=== PATIENT | female | born 1975 | race Caucasian/White ===

== ENCOUNTER 2020-08-15 21:54 | Observation (INO) ==
[2020-08-15] MEDS ORDERED: 0.9 % Sodium Chloride 1,000 ML IVC ONE ×2 (23:28→23:51)
[2020-08-15 23:35] LABS: VBG HCO3 23 mEq/L (21-27); VBG PCO2 35 mmHg (41-51); VBG PH 7.42 pH Units (7.32-7.42); VBG PO2 83 mmHg (25-50)
[2020-08-16 00:03] LABS: Acetaminophen < 10 mcg/mL (10-20); Alanine Aminotransferase 64 Units/L (7-52); Albumin/Globulin Ratio 1.4 (1.1-2.2); Alkaline Phosphatase 45 Units/L (34-104); Aspartate Amino Transferase 63 Units/L (13-39); BUN/Creatinine Ratio 28 (6-26); Bilirubin,Direct 0.2 mg/dL (0.0-0.2); Bilirubin,Indirect 0.6 mg/dL (0.0-1.0); Bilirubin,Total 0.8 mg/dL (0.3-1.0); Blood Urea Nitrogen 26 mg/dL (6-20); Calcium 9.4 mg/dL (8.6-10.3); Carbon Dioxide 19 mEq/L (23-29); Chloride 100 mEq/L (98-107); Ethanol < 10 mg/dL (Less than 10); Globulin 2.8 g/dL (2.4-3.5); Glucose 151 mg/dL (70-105); Lipase 13 Units/L (11-82); Magnesium 2.1 mg/dL (1.6-2.6); Osmolality,Calculated 290 (280-300); Phosphorous 3.1 mg/dL (2.7-4.5); Potassium 4.2 mEq/L (3.5-5.1); Salicylate < 2.5 mg/dL (15.0-30.0); Sodium 136 mEq/L (136-145); Total Protein 6.8 g/dL (6.4-8.9); eGFR For African Americans > 60 (> 60); eGFR For Non-African Americans > 60 (> 60)
[2020-08-16 00:07] LABS: Thyroid Stimulating Hormone 1.188 mcIU/mL (0.340-5.600)
[2020-08-16 00:19] LABS: Amphetamine Screen,Urine Negative ng/mL (Cutoff=1000); Barbiturate Screen,Urine Negative ng/mL (Cutoff=200); Benzodiazepines Screen,Urine Negative ng/mL (Cutoff=200); Bilirubin,Urine Negative (Negative); Blood,Urine Negative (Negative); Cannabinoid Screen,Urine Negative ng/mL (Cutoff = 50); Clarity,Urine Clear (Clear); Cocaine Screen,Urine Negative ng/mL (Cutoff= 300); Color,Urine Yellow (Yellow); Glucose,Urine (UA) Normal (Normal); Ketones,Urine 10 mg/dL (Negative); Leukocyte Esterase,Urine Moderate (Negative); Mucus,Urine Moderate per lpf (None-Few); Nitrite,Urine Negative (Negative); Opiate Screen,Urine Positive ng/mL (Cutoff=300); PH,Urine 5.5 pH Units (5.0-8.0); Phencyclidine Screen,Urine Negative ng/mL (Cutoff=25); Protein,Urine Trace mg/dL (Neg-Trace); RBC,Urine 0-3 per hpf (0-3); Specific Gravity,Urine > 1.030 (1.010-1.025); Squamous Epithelial Cell,Urine Few per hpf (None-Few); Urobilinogen,Urine Normal (Normal)
[2020-08-16 00:25] LABS: Basophils % 0.1 %; Eosinophils % 0.1 %; Hematocrit 52.7 % (35.3-44.9); Hemoglobin 17.1 g/dL (11.5-15.4); Immature Granulocytes % 0.5 % (0-4); Lymphocytes # 2.2 K/mcL (0.6-4.6); Lymphocytes % 21.1 %; Mean Corpuscular HGB Conc 32.4 g/dL (31.6-35.5); Mean Corpuscular Hemoglobin 30.4 pg (28.0-33.3); Mean Corpuscular Volume 93.8 fL (83.0-100.0); Mean Platelet Volume 9.5 fL (9.4-12.4); Monocytes # 0.8 K/mcL (0.0-1.3); Monocytes % 7.6 %; Neutrophils # 7.3 K/mcL (1.6-8.9); Platelet Count 260 K/mcL (140-400); Red Blood Count 5.62 M/mcL (3.82-4.97); Red Cell Distribution Width 14.4 % (11.5-14.5); Segmented Neutrophils % 70.6 %; White Blood Count 10.3 K/mcL (4.3-11.1)
[2020-08-16] MEDS ORDERED: 0.9 % Sodium Chloride 1,000 ML IVC SCH (00:30)
[2020-08-16] MEDS ORDERED: Acetaminophen 325 MG TABLET PO PRN (02:54)
[2020-08-16] MEDS ORDERED: Naloxone 0.4 MG/ML INJ IVP PRN (02:54)
[2020-08-16] MEDS: *HR* LORazepam 2 MG/ML VIAL IVP PRN ×3 (04:53→15:08)
[2020-08-16] MEDS: Ondansetron 4 MG/2 ML VIAL IVP PRN ×3 (04:54→21:59)
[2020-08-16] MEDS: 0.9 % Sodium Chloride 1,000 ML IVC SCH ×2 (05:13→12:04)
[2020-08-16 05:18] LABS: Alanine Aminotransferase 52 Units/L (7-52); Albumin 3.7 g/dL (3.5-5.7); Albumin/Globulin Ratio 1.5 (1.1-2.2); Alkaline Phosphatase 38 Units/L (34-104); Aspartate Amino Transferase 45 Units/L (13-39); BUN/Creatinine Ratio 28 (6-26); Bilirubin,Total 0.9 mg/dL (0.3-1.0); Blood Urea Nitrogen 24 mg/dL (6-20); Calcium 8.5 mg/dL (8.6-10.3); Carbon Dioxide 21 mEq/L (23-29); Chloride 106 mEq/L (98-107); Globulin 2.4 g/dL (2.4-3.5); Glucose 120 mg/dL (70-105); Osmolality,Calculated 291 (280-300); Potassium 3.9 mEq/L (3.5-5.1); Sodium 138 mEq/L (136-145); Total Protein 6.1 g/dL (6.4-8.9); eGFR For African Americans > 60 (> 60); eGFR For Non-African Americans > 60 (> 60)
[2020-08-16 09:05] LABS: Estimated Average Glucose 111 mg/dl; Hemoglobin A1C 5.5 %
[2020-08-16 09:34] LABS: Creatine Kinase 14 Units/L (30-223)
[2020-08-16] MEDS ORDERED: Gadolinium Contrast Agent (WT Based) IV PRN (11:02)
[2020-08-16] MEDS ORDERED: *HR* LORazepam 2 MG/ML VIAL IVP PRN (15:25)
[2020-08-16] MEDS ORDERED: *HR* LORazepam 2 MG/ML VIAL IVP SCH (15:30)
[2020-08-16] MEDS ORDERED: ADALIMUMAB 40 MG/0.4 ML SQ SCH (15:30)
[2020-08-16 20:45] LABS: Folate > 22.3 ng/mL (3.0-16.0); Vitamin B12 562 pg/mL (250-1100)
[2020-08-16] MEDS: *HR* HYDROcodone/Acet 5/325 mg TABLET PO PRN (21:59)
[2020-08-16] MEDS: *HR* LORazepam 1 MG TABLET PO SCH (21:59)
[2020-08-16] MEDS ORDERED: traZODone 50 MG TABLET PO SCH (22:30)
[2020-08-17 01:14] LABS: Hematocrit 42.4 % (35.3-44.9); Hemoglobin 13.9 g/dL (11.5-15.4); Mean Corpuscular HGB Conc 32.8 g/dL (31.6-35.5); Mean Corpuscular Hemoglobin 30.6 pg (28.0-33.3); Mean Corpuscular Volume 93.4 fL (83.0-100.0); Mean Platelet Volume 9.2 fL (9.4-12.4); Platelet Count 203 K/mcL (140-400); Red Blood Count 4.54 M/mcL (3.82-4.97); Red Cell Distribution Width 14.7 % (11.5-14.5); White Blood Count 6.9 K/mcL (4.3-11.1)
[2020-08-17 01:32] LABS: BUN/Creatinine Ratio 27 (6-26); Blood Urea Nitrogen 21 mg/dL (6-20); Calcium 7.7 mg/dL (8.6-10.3); Carbon Dioxide 22 mEq/L (23-29); Chloride 110 mEq/L (98-107); Glucose 106 mg/dL (70-105); Osmolality,Calculated 293 (280-300); Potassium 3.7 mEq/L (3.5-5.1); Sodium 140 mEq/L (136-145); eGFR For African Americans > 60 (> 60); eGFR For Non-African Americans > 60 (> 60)
[2020-08-17] MEDS: *HR* LORazepam 1 MG TABLET PO SCH (07:48)
[2020-08-17] MEDS: *HR* HYDROcodone/Acet 5/325 mg TABLET PO PRN (07:53)
[2020-08-17] MEDS ORDERED: valACYclovir 500 MG TABLET PO SCH (09:00)
[2020-08-17] MEDS ORDERED: Baclofen 10 MG TABLET PO SCH (09:00)
[2020-08-17] MEDS ORDERED: (Vortioxetine Hydrobromide [Trintellix] 20 MG Tablet) PO SCH (09:00)
[2020-08-17] MEDS ORDERED: Famotidine 20 MG TABLET PO SCH (09:00)
[2020-08-17] MEDS ORDERED: amLODIPine 5 MG TABLET PO SCH (09:00)
[2020-08-17] MEDS ORDERED: Propranolol LA (24 HR) 60 MG CAP.SA.24H PO SCH (09:00)
[2020-08-17] MEDS ORDERED: NORETHINDRONE E ESTRADIOL IRON PO SCH (09:00)
[2020-08-17] MEDS ORDERED: (Leflunomide [Arava] 20 MG Tablet) PO SCH (09:00)
[2020-08-17 11:12] VITALS: BP 150/87
== END 2020-08-17 16:06 | disposition home or self-care (01) ==
LOC: 2NENU 21:54 → EMEROOARM 21:54 → SUATTDRO 08-16 02:16 → 2NENU 08-16 03:53
PROVIDERS: ADMIT Family Medicine; ATTEND Family Medicine